=== PATIENT | female | born 1960 | race Caucasian/White ===

== ENCOUNTER → 2018-01-03 | Outpatient (CLI) | payer OTHER | END | disposition home or self-care (01) | LOC: RAH 08:08 | PROVIDERS: ATTEND Physical Medicine & Rehabilitation | DX: M50.123 Cervical disc disorder at C6-C7 level with radiculopathy (principal); M48.02 Spinal stenosis, cervical region | CPT/HCPCS: 72052 ==

== ENCOUNTER → 2019-08-17 | Outpatient (CLI) | payer OTHER | END | disposition home or self-care (01) | LOC: RAH 12:51 | PROVIDERS: ATTEND Physical Medicine & Rehabilitation | DX: M47.817 Spondylosis without myelopathy or radiculopathy, lumbosacral region (principal); M48.07 Spinal stenosis, lumbosacral region | CPT/HCPCS: 72110 ==

== ENCOUNTER → 2019-09-11 | Outpatient (CLI) | payer OTHER | END | disposition home or self-care (01) | LOC: RAH 15:29 | PROVIDERS: ATTEND Physical Medicine & Rehabilitation | DX: M17.12 Unilateral primary osteoarthritis, left knee (principal) | CPT/HCPCS: 73562 ==

== ENCOUNTER → 2019-12-11 | Outpatient (CLI) | payer OTHER | LOC: RAH 13:06 | PROVIDERS: ATTEND Physical Medicine & Rehabilitation | DX: M50.23 Other cervical disc displacement, cervicothoracic region (principal) | CPT/HCPCS: 72141 ==

== ENCOUNTER → 2020-06-29 | Outpatient (CLI) | payer OTHER | END | disposition home or self-care (01) | LOC: RAH 13:24 | PROVIDERS: ATTEND Physical Medicine & Rehabilitation | DX: M47.26 Other spondylosis with radiculopathy, lumbar region (principal); M51.27 Other intervertebral disc displacement, lumbosacral region; M89.38 Hypertrophy of bone, other site | CPT/HCPCS: 72148 ==

== ENCOUNTER 2021-09-13 05:38 | Day surgery (SDC) | payer OTHER ==
[2021-09-11 10:45] LABS: BASOPHILS % (AUTO) 1.1 % (0.0-5.0); EOSINOPHILS % (AUTO) 4.2 % (0.0-8.0); HEMATOCRIT 42.6 % (36-48); LYMPHOCYTES % (AUTO) 37.4 % (21.0-51.0); MEAN CORPUSCULAR HEMOGLOBIN 29.6 pg (27.0-33.0); MEAN CORPUSCULAR HGB CONC 31.2 g/dL (32.0-36.0); MEAN CORPUSCULAR VOLUME 94.9 fL (79-99); MONOCYTES % (AUTO) 7.9 % (3.0-13.0); NEUTROPHILS % (AUTO) 49.2 % (40.0-77.0); PLATELET COUNT (AUTO) 234 K/uL (130-400); RED BLOOD CELL COUNT(AUTO) 4.49 MIL/uL (4.00-5.50); RED CELL DISTRIBUTION WIDTH 13.1 % (11.0-15.5); WHITE BLOOD COUNT (AUTO) 5.4 K/uL (4.8-10.8)
[2021-09-11 10:54] LABS: CREATININE 0.8 mg/dL (0.5-1.5); POTASSIUM 4.9 mmol/L (3.5-5.1)
[2021-09-12 07:57] VITALS: BP 140/83
[2021-09-13] VITALS (11 sets, daily range): BP systolic 117–130; BP diastolic 68–80
[~2021-09-13] VITALS: Ht 160 cm; Wt 92.6 kg
[~2021-09-13 05:38] MED LIST: BUPR100T5 PO; FLUO40CA7 PO; MELO-106 PO
[2021-09-13] MEDS: CEFAZOLIN SODIUM 1 GM VIAL IVP SCH ×2 (06:00→08:00)
[2021-09-13] MEDS ORDERED: LACTATED RINGERS 1000ML 1,000 ML IV ONE (06:38)
[2021-09-13] MEDS ORDERED: MIDAZOLAM HCL 1 MG/ML 2ML VIAL ONE (07:26)
[2021-09-13] MEDS ORDERED: FENTANYL CITRATE PF 50 MCG/1 ML 5ML AMP IV ONE (07:26)
== END 2021-09-13 09:46 | disposition home or self-care (01) ==
LOC: DAH 05:38
PROVIDERS: ATTEND Neurological Surgery
DX: G56.01 Carpal tunnel syndrome, right upper limb (principal); Z20.822 Contact with and (suspected) exposure to COVID-19; Z88.1 Allergy status to other antibiotic agents; Z88.6 Allergy status to analgesic agent; Z98.890 Other specified postprocedural states; Z79.01 Long term (current) use of anticoagulants
CPT/HCPCS: 36415; 64721; 80048; 85025; 87635; A4215; A4216; A4221; A4222; A4223; A4510; A4600; A4663; A6260; C9803; J0690; J2250; J3010; J7120

== ENCOUNTER → 2022-05-03 | Outpatient (CLI) | payer OTHER | END | disposition home or self-care (01) | LOC: RAH 15:39 | PROVIDERS: ATTEND Orthopaedic Surgery | DX: M17.12 Unilateral primary osteoarthritis, left knee (principal) | CPT/HCPCS: 73700 ==

== ENCOUNTER 2022-05-08 07:32 | Observation (INO) | payer OTHER ==
[2022-05-02 16:14] LABS: BASOPHILS % (AUTO) 0.6 % (0.0-5.0); EOSINOPHILS % (AUTO) 3.7 % (0.0-8.0); HEMATOCRIT 39.8 % (36-48); LYMPHOCYTES % (AUTO) 38.2 % (21.0-51.0); MEAN CORPUSCULAR HEMOGLOBIN 30.2 pg (27.0-33.0); MEAN CORPUSCULAR HGB CONC 32.7 g/dL (32.0-36.0); MEAN CORPUSCULAR VOLUME 92.3 fL (79-99); MONOCYTES % (AUTO) 7.3 % (3.0-13.0); PLATELET COUNT (AUTO) 228 K/uL (130-400); RED BLOOD CELL COUNT(AUTO) 4.31 MIL/uL (4.00-5.50); RED CELL DISTRIBUTION WIDTH 13.2 % (11.0-15.5); WHITE BLOOD COUNT (AUTO) 6.4 K/uL (4.8-10.8)
[2022-05-02 16:22] LABS: INR 0.93 (0.85-1.15); PROTHROMBIN TIME 10.1 SEC (9.6-11.6)
[2022-05-02 16:23] LABS: PARTIAL THROMBOPLASTIN TIME 27.9 SEC (26.3-35.5)
[2022-05-02 16:25] LABS: CREATININE 0.9 mg/dL (0.5-1.5); POTASSIUM 4.3 mmol/L (3.5-5.1); TOTAL PROTEIN, SERUM 7.3 g/dL (6.0-8.3)
[2022-05-07 11:14] VITALS: BP 139/79
[2022-05-08] VITALS (22 sets, daily range): BP systolic 99–155; BP diastolic 55–86
[~2022-05-08] VITALS: Ht 160 cm; Wt 93.3 kg
[~2022-05-08 07:32] MED LIST changes: -BUPR100T5 PO; +DOXY50TA14 PO; +LACTATED RINGERS 1000ML 1,000 ML IV SCH; -MELO-106 PO
[2022-05-08] MEDS: CEFAZOLIN SODIUM 1 GM VIAL IVP SCH ×3 (08:00→21:53)
[2022-05-08] MEDS ORDERED: TRANEXAMIC ACID 1000MG/10ML ONE (10:45)
[2022-05-08] MEDS ORDERED: ROPIVACAINE 0.5% 5MG/ML 30ML IJ ONE ×2 (11:08→12:04)
[2022-05-08] MEDS ORDERED: LIDOCAINE PF 100MG/5ML (2%) SYRINGE 5ML ONE (12:04)
[2022-05-08] MEDS ORDERED: DEXAMETHASONE SOD PHOSPHATE 4 MG/ML 1ML VIAL ONE ×2 (12:04→12:18)
[2022-05-08] MEDS ORDERED: MIDAZOLAM HCL 1 MG/ML 2ML VIAL ONE (12:05)
[2022-05-08] MEDS ORDERED: GLYCOPYRROLATE 1 MG/5 ML SYRINGE ONE (12:05)
[2022-05-08] MEDS ORDERED: NEOSTIGMINE 5MG/5ML SYR IV ONE (12:06)
[2022-05-08] MEDS ORDERED: ONDANSETRON 4MG INJ ONE (12:06)
[2022-05-08] MEDS ORDERED: KETOROLAC 30MG VIAL (30MG/ML) ONE (12:07)
[2022-05-08] MEDS ORDERED: ROCURONIUM 10MG/1ML SYR 10 MG/ML ML ONE ×2 (12:07→13:39)
[2022-05-08] MEDS ORDERED: FENTANYL CITRATE PF 50 MCG/1 ML 2ML VIAL ONE ×2 (12:08→14:29)
[2022-05-08] MEDS ORDERED: PROPOFOL 10 MG/ML 20ML VIAL IV ONE (12:09)
[2022-05-08] MEDS ORDERED: EPHEDRINE SULFATE 50 MG/ML AMPULE ONE (13:10)
[2022-05-08] MEDS ORDERED: FENTANYL CITRATE PF 50 MCG/1 ML 5ML AMP IV ONE (14:48)
[2022-05-08] MEDS ORDERED: PHENYLEPHRINE HCL 10 MG/ML 1ML VIAL IV ONE (14:57)
[2022-05-08] MEDS ORDERED: POTASSIUM CHLORIDE 20MEQ/100ML 100 ML IV PRN (17:00)
[2022-05-08] MEDS ORDERED: MORPHINE 4 MG SYG IVP PRN (17:00)
[2022-05-08] MEDS ORDERED: KCL 20 MEQ ERTAB PO PRN (17:00)
[2022-05-08] MEDS ORDERED: ONDANSETRON 4MG INJ IVP PRN (17:00)
[2022-05-08] MEDS ORDERED: POTASSIUM CHLORIDE 10% ELIXIR 20 MEQ/15 ML UDCUP PO PRN (17:00)
[2022-05-08] MEDS ORDERED: LIDOCAINE HCL-MPF 1% 2ML VIAL IV PRN (17:00)
[2022-05-08] MEDS ORDERED: HYDROCODONE/ACETAMINOPHEN 5/325 MG TAB PO PRN (17:00)
[2022-05-08] MEDS ORDERED: METOCLOPRAMIDE 10 MG/2 ML VIAL ONE (17:04)
[2022-05-08] MEDS: ACETAMINOPHEN 1,000 MG/100 ML VIAL IV SCH ×2 (17:21→21:53)
[2022-05-08] MEDS: IBUPROFEN 800MG + NS 250ML IV SCH (20:06)
[2022-05-08] MEDS: FAMOTIDINE 20MG TAB PO SCH (20:07)
[2022-05-08] MEDS: ASPIRIN 81 MG EC TAB PO SCH (20:07)
[2022-05-09] MEDS: HYDROCODONE/ACETAMINOPHEN 10/325 MG TAB PO PRN ×3 (01:31→11:33)
[2022-05-09] MEDS: 0.9%NACL 1000ML 1,000 ML IV SCH ×2 (01:34→13:00)
[2022-05-09] MEDS: IBUPROFEN 800MG + NS 250ML IV SCH ×2 (03:14→12:37)
[2022-05-09 03:29] VITALS: BP 116/70
[2022-05-09] MEDS: ACETAMINOPHEN 1,000 MG/100 ML VIAL IV SCH (05:07)
[2022-05-09] MEDS: CEFAZOLIN SODIUM 1 GM VIAL IVP SCH (05:08)
[2022-05-09 05:27] LABS: HEMATOCRIT 32.8 % (36-48); MEAN CORPUSCULAR HEMOGLOBIN 29.9 pg (27.0-33.0); MEAN CORPUSCULAR HGB CONC 32.3 g/dL (32.0-36.0); MEAN CORPUSCULAR VOLUME 92.4 fL (79-99); RED BLOOD CELL COUNT(AUTO) 3.55 MIL/uL (4.00-5.50); RED CELL DISTRIBUTION WIDTH 13.8 % (11.0-15.5)
[2022-05-09 06:10] LABS: CREATININE 0.8 mg/dL (0.5-1.5); POTASSIUM 4.1 mmol/L (3.5-5.1)
[2022-05-09 07:20] VITALS: BP 92/50
[2022-05-09] MEDS: FAMOTIDINE 20MG TAB PO SCH (07:50)
[2022-05-09] MEDS: ASPIRIN 81 MG EC TAB PO SCH (07:50)
[2022-05-09] MEDS ORDERED: POLYETHYLENE GLYCOL 3350 17 GM POWD.PACK PO SCH (09:00)
[2022-05-09] MEDS ORDERED: FLUOXETINE HCL 20 MG CAPSULE PO SCH (09:00)
[2022-05-09] MEDS ORDERED: Doxycycline Hyclate 50 MG PO SCH (09:00)
[2022-05-09 11:26] VITALS: BP 97/55
[2022-05-09 15:22] VITALS: BP 118/56
[2022-05-11] MEDS ORDERED: BISACODYL 10 MG SUPP.RECT RC PRN (17:00)
== END 2022-05-09 16:05 | disposition home or self-care (01) ==
LOC: DAH 07:32 → DAHIP 07:33 → DAH 07:33 → 4DH 17:44
PROVIDERS: ADMIT Orthopaedic Surgery; ATTEND Orthopaedic Surgery
DX: M17.12 Unilateral primary osteoarthritis, left knee (principal); Z20.822 Contact with and (suspected) exposure to COVID-19; E66.01 Morbid (severe) obesity due to excess calories; G47.30 Sleep apnea, unspecified; Z96.659 Presence of unspecified artificial knee joint; Z79.899 Other long term (current) drug therapy
CPT/HCPCS: 0055T; 27446; 36415; 73564; 80048; 80053; 85025; 85027; 85610; 85730; 87426; 96365; 96366; 96375; 96376; 97039; G0378; J0690; J1100; J1741; J1885; J2001; J2250; J2370; J2405; J2704; J2710; J2765; J2795; J3010; J3490; J7120

== ENCOUNTER 2024-12-24 12:36 | Emergency (ER) | payer OTHER ==
[~2024-12-24] VITALS: Ht 160 cm; Wt 83.9 kg
[~2024-12-24 12:36] MED LIST changes: -LACTATED RINGERS 1000ML 1,000 ML IV SCH
--- NOTE | 2024-12-24 12:48 | ERN ---
General Chief Complaint: Wrist Pain/Injury Stated Complaint: LEFT WRIST PAIN S/P MECHANICAL FALL TODAY Time Seen by MD: 12:37 Source: patient History of Present Illness Initial Comments PATIENT IS A 63-YEAR-OLD FEMALE COMING IN TO BE EVALUATED FOR LEFT WRIST PAIN. PER PATIENT TWO ADULT IN HIS STEP AEROBICS FELL BACKWARDS LANDED ON HER LEFT WRIST. SHE STATES HE IS ABLE TO MOVE A REST BUT WITH SOME DISCOMFORT. PAIN IS EXACERBATED WITH ROTATION. Allergies: Coded Allergies: Sulfa (Sulfonamide Antibiotics) (Unverified Allergy, Unknown, 09/12/21) codeine (Verified Allergy, Unknown, 09/11/21) iodine (Unverified Allergy, Unknown, 05/07/22) Home Meds Reported Medications Doxycycline Hyclate (Doxycycline Hyclate) 50 Mg Tablet, 50 MG PO AM, TAB 05/07/22 Fluoxetine HCl (Prozac) 40 Mg Capsule, 40 MG PO DAILY, CAP 09/12/21 Past Medical History Past Medical History: Anxiety Past Surgical History: Hysterectomy ROS Dictation CONSTITUTIONAL: NO CHILLS, NO FEVER, NO WEAKNESS, NO DIAPHORESIS, NO MALAISE. HEAD/FACE: NO SIGNS OF TRAUMA. EENT: NO EYE PAIN, NO BLURRED VISION, NO TEARING, NO DOUBLE VISION, NO EAR HIREN N, NO EAR DISCHARGE, NO NOSE PAIN, NO NASAL CONGESTION, NO THROAT PAIN, NO THROAT SWELLING, NO MOUTH PAIN. RESPIRATORY: NO COUGH, NO ORTHOPNEA, NO SOB, NO STRIDOR, NO WHEEZING. CARDIOVASCULAR: NO CHEST PAIN, NO EDEMA, NO PALPITATIONS, NO SYNCOPE. GASTROINTESTINAL/ABDOMINAL: NO ABDOMINAL PAIN, NO CONSTIPATION, NO DIARRHEA, NO NAUSEA, NO VOMITING. GENITOURINARY: NO ABNORMAL DISCHARGE, NO DYSURIA, NO FREQUENT URINATION, NO HEMATURIA. NO COMPLAINTS OF PAIN IN THE GENITALS. MUSCULOSKELETAL: NO BACK PAIN, NO GOUT, JOINT PAIN, NO JOINT SWELLING, MUSCLE PAIN, NO MUSCLE STIFFNESS, NO NECK PAIN. INTEGUMENTARY: NO CHANGE IN COLOR, NO CHANGE IN HAIR/NAILS, NO DRYNESS, NO LESION, NO LUMPS, NO RASH. NEUROLOGICAL/PSYCH: NO ANXIETY, NOT DEPRESSED, NO EMOTIONAL PROBLEM, NO HEADACHE, NO NUMBNESS, NO PRE-EXISTING DEFICIT, NO HISTORY OF SEIZURES, NO TREMORS, NO WEAKNESS. HEMATOLOGIC/LYMPHATIC: NOT ANEMIC, NO HISTORY OF BLOOD CLOTS, NO APPARENT BLEEDING, NO BRUISING, GLANDS NOT SWOLLEN. ALL SYSTEMS NEGATIVE, EXCEPT NOTED. Physical Exam Physical Exam Dictation VITAL SIGNS: REVIEWED. GENERAL APPEARANCE: ALERT, ORIENTED X3, NO ACUTE DISTRESS, OBESE. HEAD AND FACE: NON-TRAUMATIC. EYES: PERRL, PINK CONJUNCTIVAS, EYELID NO TRAUMA, ANTERIOR CHAMBER CLEAR. EARS: PINNAS INTACT AND NO SIGNS OF TRAUMA OR ERYTHEMA. EAR CANALS CLEAR AND NO DISCHARGE. TMS NO ERYTHEMA. NOSE: NO DISCHARGE, NO BLEEDING. OROPHARYNX: MOUTH NORMAL, TEETH NO CARIES, TONGUE PINK. PHARYNX CLEAR, NO MICHA THEMA. TONSILS NO EXUDATES, NO ABSCESSES NOTED. MUCOUS MEMBRANE MOIST. NECK: SUPPLE, NON-TENDER, NO THYROMEGALY, NO MASSES, NO JVD, NO BRUITS. BREAST: DEFERRED. CHEST: NO TENDERNESS, NO CREPITUS, NO PARADOXICAL MOVEMENT, NO RETRACTIONS. LUNGS: CLEAR, WELL-VENTILATED, SYMMETRIC, NO RALES, NO WHEEZING, NO RHONCHI, NO STRIDOR, GOOD BREATH SOUNDS BILATERALLY. HEART: REGULAR RATE, REGULAR RHYTHM, NO MURMUR, NO GALLOPS. VASCULAR: NO PERIPHERAL EDEMA. ABDOMEN: SOFT, POSITIVE BOWEL SOUNDS, NONDISTENDED, NO GUARDING, NONTENDER, NO REBOUND, NO MASSES NO HEPATOMEGALY, NO SPLENOMEGALY, NO ALTMAN'S SIGN, NO HERNIAS. RECTAL: DEFERRED. GENITAL: DEFERRED. NEUROLOGICAL: NORMAL SPEECH, GROSS MOTOR FUNCTION INTACT, GROSS SENSORY FUNCTION INTACT. MUSCULOSKELETAL: NECK NONTENDER, FULL RANGE OF MOTION, BACK NONTENDER, FULL RANGE OF MOTION. EXTREMITIES: NONTENDER, FULL RANGE OF MOTION. LEFT WRIST PAIN ON PALPATION SKIN: COLOR PINK, DRY, NO TURGOR, NO RASH, NO LACERATIONS, NO ABRASIONS, NO CONTUSIONS. LYMPHATICS: DEFERRED. Results Laboratory and Microbiology Labs Reviewed?: Yes EKG/XRAY/US/CT/MRI X-RAY Comment X-ray wrist-distal radial fracture minimal displacement MDM MDM: DIFFERENTIAL DIAGNOSIS: LEFT WRIST STRAIN, LEFT WRIST FRACTURE, RATIONALE: TESTS CONSIDERED AND ORDERED SECONDARY TO SHARED DECISION MAKING INCLUDE: PREVIOUS OUTSIDE RECORDS REVIEWED: OLD ER VISITS. RISK OF COMPLICATION AND/OR MORBIDITY OR MORTALITY OF PATIENT MANAGEMENT: NONE MEDICATIONS-PER MEDICATION RECONCILIATION NEED FOR HOSPITALIZATION: PATIENT DOES NOT MEET CRITERIA FOR HOSPITALIZATION. NEED FOR EMERGENCY MAJOR/MINOR SURGERY: NO Patient is a 63-year-old female coming in after she had a mechanical fall. Per patient she was doing some aerobics fell backwards. X-ray did disclose a distal radial fracture. Fracture minimal displacement. Splint was applied to immobilize wrist. Patient will be discharged in stable condition with a diagnosis of wrist fracture. ED Course Orders Procedure Category Date Status Time Wrist Comp 3+Vws Lt RAD 12/24/24 Taken 12:41 Vital Signs Date Time Temp Pulse Resp B/P (MAP) Pulse Ox O2 Delivery O2 Flow Rate FiO2 12/24/24 12:40 98.1 69 16 128/70 96 Room Air* 0 21 12/24/24 12:37 98.1 69 16 128/70 96 Room Air 0 DX & DISP Disposition: Discharge Departure Impression: Primary Impression: Distal radial fracture Condition: Stable Scripts Naproxen (Naproxen) 500 Mg Tablet 1 TAB PO BID for pain for 7 Days, #14 TAB 0 Refills Prov: CLARITA CENTENO MD 12/24/24 Additional Instructions: FOLLOW-UP WITH PRIMARY CARE PROVIDER IN 1 TO 2 DAYS. TAKE MEDICATIONS DIRECTED HERE IN THE EMERGENCY ROOM. OKAY TO CONTINUE HOME MEDICATIONS UNLESS OTHERWISE DISCUSSED DURING YOUR VISIT IN THE EMERGENCY ROOM TODAY. RETURN TO YOUR NEAREST EMERGENCY ROOM IF SYMPTOMS WORSEN OR IF THERE IS NO IMPROVEMENT. CALL 911 IF YOU NEED IMMEDIATE ASSISTANCE. TAKE TYLENOL [id number] NEEDED AND IF NO CONTRAINDICATIONS ARE PRESENT. INCREASE ORAL HYDRATION. A WOUND CULTURE OR URINE CULTURE WAS ORDERED HERE IN THE EMERGENCY ROOM DEPARTMENT PLEASE FOLLOW-UP WITH PRIMARY CARE PROVIDER AND ADVISE THEM TO GET REPORTS FROM OUR FACILITY. IF YOU HAD ANY ARSEN WRAP/SPLINTS THAT WERE APPLIED HERE, PLEASE DO NOT REMOVE THEM UNTIL YOU SEE YOUR PRIMARY CARE OR SPECIALTY. Referrals: Referrals: BERTO TATE MD (PCP) CIARA NUNEZ MD Time of Disposition: 13:26 CLARITA CENTENO MD Dec 24, 2024 12:48
[2024-12-24] MEDS ORDERED: NAPR-1194 PO (13:27)
--- NOTE | 2024-12-24 13:34 | NUR ---
REVERSE SUGAR TONG SPLINT AND SLING APPLIED TO LT WRIST, PT TOLERATED WELL
--- NOTE | 2024-12-24 13:37 | HMCIMG ---
WRIST COMP 3+VWS LT HISTORY: Status post fall COMPARISON: None TECHNIQUE: 3 images of the left wrist were obtained. FINDINGS: Transverse fracture with mild displacement is seen involving the metaphyseal portion of the distal radius. No dislocation is seen. Degenerative changes are seen. IMPRESSION: 1. Findings as described above.
[2024-12-24 13:41] VITALS: BP 122/74; PULSE 65; RESP 16; TEMP 98.1; O2SAT 96
== END 2024-12-24 14:01 | disposition home or self-care (01) ==
LOC: EDH 12:36
DX: S52.502A Unspecified fracture of the lower end of left radius, initial encounter for closed fracture (principal); F41.9 Anxiety disorder, unspecified; Z79.899 Other long term (current) drug therapy; Z88.2 Allergy status to sulfonamides; Z88.5 Allergy status to narcotic agent; Z88.8 Allergy status to other drugs, medicaments and biological substances; Z90.710 Acquired absence of both cervix and uterus; W18.39XA Other fall on same level, initial encounter; Y93.89 Activity, other specified; Y92.89 Other specified places as the place of occurrence of the external cause; Y99.8 Other external cause status
CPT/HCPCS: 29125; 73110; 99283